=== PATIENT | male | born 1955 | race Caucasian/White ===

== ENCOUNTER → 2017-04-28 | Outpatient (CLI) | payer MEDICARE, OTHER ==
[2015-06-19 19:25] VITALS: BP 170/104
[~2017-04-28] MED LIST: ACET-704 PO; AMLO10TA4 PO; ASPI-630 PO; CARV12.5 PO; CITA20TA9 PO; CLOP75TA57 PO; CONTRAST GIVEN MC PRN; CYCL-331 PO; DULO30CA2 PO; EZET10TA18 PO; FENO145T32 PO; GABA-585 PO; INUL1TAB PO; IOHEXOL 240 MG/ML 50ML VIAL. ONE; IOHEXOL 300 MG/ML 75 ML VIAL. IV ONE; ISOS60TA PO; LOSA50TA2 PO; MULT1CAP15 PO; NITR0.4T SL; PANT40GR PO; PITA4TAB2 PO; RANO10002 PO; [UNRECOGNIZED DRUG - OTHER]
[2017-04-28 17:52] LABS: CREATININE 1.4 mg/dL (0.7-1.3); GFR 51.4; POTASSIUM 4.2 mmol/L (3.5-5.1)
[2017-04-28 18:21] LABS: BASO # 0.1 x10^3/uL (0.0-0.2); BASO % 1 % (0-3); EOS # 0.4 x10^3/uL (0.0-0.7); EOS % 4 % (0-3); HEMATOCRIT 42.9 % (39.0-53.0); HEMOGLOBIN 15.2 g/dL (13.0-17.5); LYMPH # 3.2 x10^3/uL (1.0-4.8); LYMPH % 32 % (24-48); MEAN CORPUSCULAR HEMOGLOBIN 31 pg (25-35); MEAN CORPUSCULAR HGB CONC 35 g/dL (31-37); MEAN CORPUSCULAR VOLUME 86 fL (79-100); MONO # 0.7 x10^3/uL (0.0-1.1); MONO % 7 % (0-9); NEUT # 5.9 x10^3uL (1.8-7.7); NEUT % 57 % (31-73); PLATELET COUNT 210 x10^3/uL (140-400); RED BLOOD COUNT 4.96 x10^6/uL (4.30-5.70); RED CELL DISTRIBUTION WIDTH 14.4 % (11.5-14.5); WHITE BLOOD COUNT 10.2 x10^3/uL (4.0-11.0)
--- NOTE | 2017-04-28 19:01 | RAD ---
CT ABD PELV W/ORAL IV CONTRAST dated 04/28/2017 6:18 PM Indication: Pain left-sidedSEVERE LEFT LOWER QUADRANT PAIN. ORAL AND 60MLS OMNI 300 IV CONTRAST
APPENDECTOMY
PRIOR CT ABD/EPVLIS SENT
left lower quadrant pain Comparison: 07/02/2014 Technique: Contiguous axial imaging the abdomen and pelvis performed after the administration of 60 cc Omnipaque 300. One or more of the following individualized dose reduction techniques were utilized for this examination: 1. Automated exposure control 2. Adjustment of the mA and/or kV according to patient size 3. Use of iterative reconstruction technique Findings: Limited images of lung bases are clear. Heart size upper limits of normal. No pleural or pericardial effusion. Coronary artery calcification. Liver is of diffuse low density, compatible with mild fatty infiltration. No apparent mass. Spleen, pancreas, adrenal glands, gallbladder and kidneys are unremarkable. No hydronephrosis. Partially opacified GI tract normal in caliber and contour. No focal bowel wall thickening. No inflammatory stranding in the mesentery. The appendix is not identified and reportedly surgically absent. Small umbilical hernia containing only fat. Images of pelvis a nondistended urinary bladder. Prostate gland mildly enlarged. No free fluid or lymphadenopathy. Bone windows show no acute findings. Mild multilevel spondylosis. IMPRESSION: 1. No acute abnormality of abdomen or pelvis. 2. Mild hepatic steatosis. Electronically signed by: Anders Mckeon MD (04/28/2017 6:57 PM) [facility]
[2017-04-28 21:55] LABS: BILIRUBIN,URINE NEG (NEG); CLARITY,URINE CLOUDY; COLOR,URINE AMBER; GLUCOSE,URINE NEG (NEG)
[2017-04-28 21:57] LABS: BACTERIA,URINE 0 /HPF (0-FEW); NITRITE,URINE NEG (NEG); SQUAMOUS EPITHELIAL CELL,UR FEW /LPF; UROBILINOGEN,URINE 1 mg/dL (0.2 mg/dL)
[2017-04-28 22:04] LABS: HYALINE CASTS, URINE MOD /HPF
== END | disposition home or self-care (01) ==
LOC: RAD 16:01
PROVIDERS: ATTEND Family Medicine
DX: K76.0 Fatty (change of) liver, not elsewhere classified (principal); K42.9 Umbilical hernia without obstruction or gangrene; I25.10 Atherosclerotic heart disease of native coronary artery without angina pectoris
CPT/HCPCS: 36415; 74177; 80048; 81001; 85025; 87086; Q9967

== ENCOUNTER 2019-12-12 17:16 | Emergency (ER) | payer MEDICARE, OTHER ==
[~2019-12-12] VITALS: Ht 180.3 cm; Wt 119.0 kg
[~2019-12-12 17:16] MED LIST changes: -CONTRAST GIVEN MC PRN; -EZET10TA18 PO; +EZET10TA20 PO; -IOHEXOL 240 MG/ML 50ML VIAL. ONE; -IOHEXOL 300 MG/ML 75 ML VIAL. IV ONE; -LOSA50TA2 PO; +LOSA50TA86 PO; -NITR0.4T SL; +NITR0.4T24 SL
[2019-12-12 17:30] VITALS: BP 154/86
[2019-12-12] MEDS ORDERED: MORPHINE SULFATE 4 MG/ML DISP.SYRIN. IV ONE (17:30)
--- NOTE | 2019-12-12 17:34 | PHYS DOC ---
Past History Past Medical History: CAD, Diabetes, Hypertension, Stroke (FARRUKH HARDY MD) Past Surgical History: Appendectomy, Other (FARRUKH HARDY MD) Smoking: Non-smoker Alcohol Use: None Drug Use: None (FARRUKH HARDY MD) General Adult EDM: Chief Complaint: WRIST PAIN HPI: HPI: Patient is a 64-year-old male who presents to the emergency department for evaluation of a right upper extremity injury. He states he was cutting tree limbs, when a cut tree limb recoiled, and somehow struck his right upper extremity, which was pinned against the ladder. He did sustain some abrasions on the dorsal aspect of his right hand, which did not require repair. He states his last tetanus was about 2 years ago.. He complains of pain in his wrist, and into his forearm. He denies any injury to his digits, or from his mid or proximal forearm. He denies any numbness or weakness. Movement of his upper extremity and his digits worsen his pain. There are no alleviating factors to his symptoms. He denies any other complaints or injuries. The patient did not have any fall or other trauma. (FARRUKH HARDY MD) Review of Systems: Review of Systems: Constitutional: Denies fever or chills Eyes: Denies change in visual acuity HENT: Denies nasal congestion or sore throat Respiratory: Denies cough or shortness of breath Cardiovascular: Denies chest pain or edema GI: Denies abdominal pain, nausea, vomiting, bloody stools or diarrhea : Denies dysuria Musculoskeletal: Denies back pain or joint pain, other than as noted in the HPI Integument: Denies rash Neurologic: Denies headache, focal weakness or sensory changes (FARRUKH HARDY MD) Heart Score: Risk Factors: Risk Factors: DM, Current or recent (<one month) smoker, HTN, HLP, family history of CAD, obesity. Risk Scores: Score 0 - 3: 2.5% MACE over next 6 weeks - Discharge Home Score 4 - 6: 20.3% MACE over next 6 weeks - Admit for Clinical Observation Score 7 - 10: 72.7% MACE over next 6 weeks - Early Invasive Strategies (FARRUKH HARDY MD) Allergies: Allergies: Allergies Coded Allergies Type Severity Reaction Last Updated Verified atorvastatin calcium Allergy Intermediate muscle cramps 07/02/14 Yes rosuvastatin calcium Allergy Intermediate makes legs feel like they are on fire. 07/02/14 Yes (FARRUKH HARDY MD) Physical Exam: PE: PHYSICAL EXAM: CONSTITUTIONAL: Well developed, well nourished HEAD: normocephalic, atraumatic EENT: PERRL, EOMI. Conjunctivae normal color, sclerae non-icteric; moist mucous membranes. NECK: Supple, non-tender; no meningismus. There is full, painless range of motion of the cervical spine, without any focal bony midline tenderness to palpation. LUNGS: Lungs CTA, breathing even and unlabored. Normal air movement. HEART: Regular rate and rhythm, no murmur CHEST: No deformity; non-tender ABDOMEN: The abdomen is soft, and non-tender, no masses or bruits. EXTREM: There is a deformity with soft tissue swelling to the dorsal aspect of the right wrist. There are superficial abrasions on the dorsal aspect of the right hand, with no laceration. There is tenderness to palpation in the area of the right wrist, extending proximally towards the mid forearm, the proximal forearm and right elbow are nontender, the remainder of the right upper extremity is atraumatic with normal ROM. Distal sensation, motor function, capillary refill in all digits is normal in the right upper extremity. The remainder the extremities are atraumatic, with normal range of motion, no deformity, no calf tenderness. Normal pulses palpable in all extremities. There is no pedal edema. SKIN: No rash; no diaphoresis NEURO: Alert; normal speech and cognition; CN's grossly intact; strength grossly intact without focal deficit. BACK: No CVA TTP. There is no bony tenderness to palpation of the thoracic or lumbar spine. (FARRUKH HARDY MD) EKG: EKG: [] (FARRUKH HARDY MD) Radiology/Procedures: Radiology/Procedures: [] (FARRUKH HARDY MD) Radiology/Procedures: [address] [address] IMAGING REPORT Signed PATIENT: MANUELA DUKES: [id number] : 1955 LOCATION: ER AGE: 64 SEX: M EXAM STATUS: REG ER ORD. PHYSICIAN: FARRUKH HARDY MD REASON: fall, pain PROCEDURE: FOREARM RIGHT Exam: Right wrist 3 views. Right forearm 2 views. Right hand 3 views INDICATION: Fall, pain TECHNIQUE: Frontal, lateral and oblique views of the right wrist and right hand. Frontal and lateral views the right forearm Comparisons: None FINDINGS: Wrist: Impacted fracture of the distal right radial metaphysis. Fracture to the base of the ulnar styloid. No other fractures are identified. Bony soft tissue swelling is noted. Bone mineralization is normal. Hand: Bone mineralization is normal. No acute or healed fractures. Soft tissues are unremarkable. Joint spaces are well-maintained. Forearm: Redemonstration of fractures described above. No other fractures seen. Soft tissue swelling at the wrist. Joint spaces are well-maintained. IMPRESSION: 1. Impacted angulated fracture of the distal right radial metaphysis. 2. Fracture to the base of the ulnar styloid. 3. No other fracture identified at the right hand. Electronically signed by: Lori Lyman MD (12/12/2019 6:06 PM) [id number] DICTATED AND SIGNED BY: LORI LYMAN MD DATE: 12/12/191805 CC: NAHID SHAH MD; FARRUKH HARDY MD; NELA PEREZ DO ~ [place] [address] IMAGING REPORT Signed PATIENT: MANUELA DUKESOUNT: [id number] : 1955 LOCATION: ER AGE: 64 SEX: M EXAM STATUS: REG ER ORD. PHYSICIAN: FARRUKH HARDY MD REASON: fall, pain PROCEDURE: HAND RIGHT 3V Exam: Right wrist 3 views. Right forearm 2 views. Right hand 3 views INDICATION: Fall, pain TECHNIQUE: Frontal, lateral and oblique views of the right wrist and right hand. Frontal and lateral views the right forearm Comparisons: None FINDINGS: Wrist: Impacted fracture of the distal right radial metaphysis. Fracture to the base of the ulnar styloid. No other fractures are identified. Bony soft tissue swelling is noted. Bone mineralization is normal. Hand: Bone mineralization is normal. No acute or healed fractures. Soft tissues are unremarkable. Joint spaces are well-maintained. Forearm: Redemonstration of fractures described above. No other fractures seen. Soft tissue swelling at the wrist. Joint spaces are well-maintained. IMPRESSION: 1. Impacted angulated fracture of the distal right radial metaphysis. 2. Fracture to the base of the ulnar styloid. 3. No other fracture identified at the right hand. Electronically signed by: Lori Lyman MD (12/12/2019 6:06 PM) [id number] DICTATED AND SIGNED BY: LORI LYMAN MD DATE: 12/12/191805 CC: NAHID SHAH MD; FARRUKH HARDY MD; NELA PEREZ DO ~ [place] [address] IMAGING REPORT Signed PATIENT: MANUELA DUKESOUNT: [id number] : 1955 LOCATION: ER AGE: 64 SEX: M EXAM STATUS: REG ER ORD. PHYSICIAN: FARRUKH HARDY MD REASON: fall, pain PROCEDURE: WRIST 3V RIGHT Exam: Right wrist 3 views. Right forearm 2 views. Right hand 3 views INDICATION: Fall, pain TECHNIQUE: Frontal, lateral and oblique views of the right wrist and right hand. Frontal and lateral views the right forearm Comparisons: None FINDINGS: Wrist: Impacted fracture of the distal right radial metaphysis. Fracture to the base of the ulnar styloid. No other fractures are identified. Bony soft tissue swelling is noted. Bone mineralization is normal. Hand: Bone mineralization is normal. No acute or healed fractures. Soft tissues are unremarkable. Joint spaces are well-maintained. Forearm: Redemonstration of fractures described above. No other fractures seen. Soft tissue swelling at the wrist. Joint spaces are well-maintained. IMPRESSION: 1. Impacted angulated fracture of the distal right radial metaphysis. 2. Fracture to the base of the ulnar styloid. 3. No other fracture identified at the right hand. Electronically signed by: Lori Lyman MD (12/12/2019 6:06 PM) [id number] DICTATED AND SIGNED BY: LORI LYMAN MD DATE: 12/12/191805 CC: NAHID SHAH MD; FARRUKH HARDY MD; NELA PEREZ DO ~ (NELA PEREZ DO) Course & Med Decision Making: Course & Med Decision Making Pertinent Labs and Imaging studies reviewed. (See chart for details) [] 6:00 PM: Patient care was turned over to Dr. Perez at shift change, pending imaging and final disposition. Report given. (FARRUKH HARDY MD) Course & Med Decision Making 1800 Care of pt assumed by me at shift change. Awaiting completion of xrays 1850 Case was discussed with Dr. Chance telephone interviewer for Orthopedic Surgery. He reviewed the x-rays remotely and requested that I place patient in a finger splint to help with improved alignment. He wishes to see the patient in the office in approximately 4 days. The swelling needs to go down before patient can have complete reduction of the wrist and hardware placed. Patient was given both fentanyl and Ativan for pain control and muscle relaxation. Patient was neurovascularly intact and had full normal sensation to his wrist and hand. This was a closed injury. 2030 splint placed by me sling given. Detailed follow-up instructions given. We will also sent home with a Tylenol 3 starter pack. Prescription for [place] given as well. Patient is to rest, ice and elevate the injured right wrist. No use of the right wrist until cleared by orthopedic surgeon (NELA PEREZ DO) Dragon Disclaimer: Dragon Disclaimer: This electronic medical record was generated, in whole or in part, using a voice recognition dictation system. (FARRUKH HARDY MD) Departure Departure: Impression: Primary Impression: Distal radius fracture, right Qualified Codes: S52.551A - Other extraarticular fracture of lower end of right radius, initial encounter for closed fracture Additional Impression: Distal end of ulna fracture, closed Disposition: HOME, SELF-CARE Condition: STABLE Referrals: NAHID SHAH MD (PCP) GLORIA CHANCE II, MD Patient Instructions: Arm Sling Use, [id number], Wrist Fracture Additional Instructions: Rest, ice and elevate the injured right wrist, call and see the orthopedic surgeon listed tomorrow to set up an appointment for early next week. You will need surgery on this wrist. Should you have any complications including numbne ss tingling, loss of sensation etc. call your orthopedic surgeon right away. Return as needed. Scripts Hydrocodone Bit/Acetaminophen (NORCO 5-325 TABLET) 1 Each Tablet 1 TAB PO PRN Q6HRS PRN for PAIN, #20 TAB 0 Refills Prov: NELA PEREZ DO 12/12/19 Splinting Splinting : Location: right forearm Hand-Made Type: orthoglass Splint: sugar-tong Pre-Proc Neuro Vasc Exam: normal Post-Proc Neuro Vasc Exam: normal (NELA PEREZ DO) Additional Procedures Progress Reduction distal right radius, as instructed by Dr. Chance. Patient was placed in a finger traction splint for about 1 hour. There was improvement of alignment of the affected fracture. I then placed direct pressure on the distal portion of the fracture and there was some minimal clinical improvement. However he was completely neurovascularly intact before and after the attempt. Pain control was a total of 125 mcg of fentanyl as well as Ativan 2 mg. Conscious sedation was not used. Patient tolerated the procedure well and I personally placed the sugar tong splint. We did not have any cotton roll so Curlex was used to cushion the fracture area. Patient tolerated procedure well (NELA PEREZ DO) FARRUKH HARDY MD Dec 12, 2019 17:34 NELA PEREZ DO Dec 12, 2019 18:31
[2019-12-12] MEDS ORDERED: ONDANSETRON PF 4 MG/2 ML VIAL. ONE (17:36)
[2019-12-12] MEDS ORDERED: LIDOCAINE 1% Multi-Dose 20 ML VIAL. ONE (17:43)
[2019-12-12] MEDS ORDERED: ONDANSETRON PF 4 MG/2 ML VIAL. IVP ONE ×2 (17:45)
--- NOTE | 2019-12-12 18:09 | RAD ---
Exam: Right wrist 3 views. Right forearm 2 views. Right hand 3 views INDICATION: Fall, pain TECHNIQUE: Frontal, lateral and oblique views of the right wrist and right hand. Frontal and lateral views the right forearm Comparisons: None FINDINGS: Wrist: Impacted fracture of the distal right radial metaphysis. Fracture to the base of the ulnar styloid. No other fractures are identified. Bony soft tissue swelling is noted. Bone mineralization is normal. Hand: Bone mineralization is normal. No acute or healed fractures. Soft tissues are unremarkable. Joint spaces are well-maintained. Forearm: Redemonstration of fractures described above. No other fractures seen. Soft tissue swelling at the wrist. Joint spaces are well-maintained. IMPRESSION: 1. Impacted angulated fracture of the distal right radial metaphysis. 2. Fracture to the base of the ulnar styloid. 3. No other fracture identified at the right hand. Electronically signed by: Lori Wynn MD (12/12/2019 6:06 PM) [id number]
[2019-12-12] MEDS ORDERED: ACETAMINOPHEN/CODEINE 300/30MG 4TABLET STARTPACK. PO ONE (20:30)
[2019-12-12] MEDS ORDERED: HYDR-3165 PO (20:35)
== END 2019-12-12 20:45 | disposition home or self-care (01) ==
LOC: ER 17:16
DX: S52.551A Other extraarticular fracture of lower end of right radius, initial encounter for closed fracture (principal); S52.611A Displaced fracture of right ulna styloid process, initial encounter for closed fracture; I25.10 Atherosclerotic heart disease of native coronary artery without angina pectoris; E11.9 Type 2 diabetes mellitus without complications; I10 Essential (primary) hypertension; Z86.73 Personal history of transient ischemic attack (TIA), and cerebral infarction without residual deficits; Z88.8 Allergy status to other drugs, medicaments and biological substances; W20.8XXA Other cause of strike by thrown, projected or falling object, initial encounter; Y93.89 Activity, other specified; Y92.89 Other specified places as the place of occurrence of the external cause; Y99.8 Other external cause status
CPT/HCPCS: 25605; 73090; 73110; 73130; 96374; 96375; 99284; J2060; J2270; J2405; J3010

== ENCOUNTER 2020-10-30 09:48 | Observation (INO) | payer MEDICARE, OTHER ==
[~2020-10-30] VITALS: Ht 180.3 cm; Wt 114.5 kg
[2020-10-30] VITALS (8 sets, daily range): BP systolic 96–128; BP diastolic 46–64
[~2020-10-30 09:48] MED LIST changes: +HYDR-3165 PO
[2020-10-30] MEDS ORDERED: ONDANSETRON PF 4 MG/2 ML VIAL. ONE (10:06)
--- NOTE | 2020-10-30 10:06 | PHYS DOC ---
Past History Past Medical History: CAD, Diabetes Additional Past Medical Histor: Pacemaker, 6 cardiac stents Past Surgical History: Tonsillectomy Additional Past Surgical Histo: foot surgery, pacemaker Smoking: Non-smoker Alcohol Use: None Drug Use: None Adult General Chief Complaint Chief Complaint: FLU SYMPTOM HPI HPI Patient is a 65-year-old male presenting for weakness and fatigue. Reports waking up this morning with generalized weakness, fatigue and joint pain. Denies any sick contact or exposures. Admits he had transient episode of substernal chest pain with associated shortness of breath but this self resolved in less than 5 minutes. Has had no fever, no changes in medication or other concerning ingestions and/or exposures. Nonetheless, ongoing severe weakness and fatigue prompt him to come into our ER for evaluation Review of Systems Review of Systems Fourteen body systems of review of systems have been reviewed. See HPI for pertinent positives and negative responses, other longo all other systems are negative, non-pertinent or non-contributory Allergies Allergies Allergies Coded Allergies Type Severity Reaction Last Updated Verified atorvastatin calcium Allergy Intermediate muscle cramps 07/02/14 Yes rosuvastatin calcium Allergy Intermediate makes legs feel like they are on fire. 07/02/14 Yes Physical Exam Physical Exam Constitutional: Well developed, well nourished, no acute distress, appears ill HENT: Normocephalic, atraumatic, bilateral external ears normal, oropharynx dry, no oral exudates, nose normal. Eyes: PERRLA, EOMI, conjunctiva normal, no discharge. Neck: Normal range of motion, no tenderness, supple, no stridor. Cardiovascular: Heart rate regular, sinus rhythm, no murmurs rubs or gallops Lungs & Thorax: Bilateral breath sounds clear to auscultation Abdomen: Bowel sounds normal, soft, no tenderness, no masses, no pulsatile masses. Nonsurgical abdomen, no peritoneal signs Skin: Warm, dry, no erythema, no rash. Back: No tenderness, no CVA tenderness. Extremities: No tenderness, no cyanosis, no clubbing, ROM intact, no edema. Neurologic: Alert and oriented X 3, grossly normal motor & sensory function, no focal deficits noted. Psychologic: Affect normal, judgement normal, mood normal. Current Patient Data Vital Signs Vital Signs Date Time Temp Pulse Resp B/P (MAP) Pulse Ox O2 Delivery O2 Flow Rate FiO2 10/31/20 09:13 16 94 Room Air 10/31/20 08:04 16 94 10/31/20 08:00 Room Air 10/31/20 06:36 98.7 86 18 136/75 (95) 96 Room Air 10/30/20 23:48 66 18 118/62 (80) 97 Room Air 10/30/20 23:43 95 Room Air 10/30/20 22:50 70 17 120/59 (79) 95 Room Air 10/30/20 22:43 95 Room Air 10/30/20 21:54 96.8 67 16 96/56 (69) 95 Room Air 10/30/20 20:49 76 20 128/64 (85) 95 Room Air 10/30/20 20:00 65 16 109/46 (67) 90 Room Air 10/30/20 20:00 Room Air 10/30/20 19:32 97.6 10/30/20 19:00 66 17 110/62 (78) 95 Room Air 10/30/20 18:00 98.1 75 19 113/61 (78) 95 Room Air 10/30/20 13:05 101.1 84 22 116/59 (78) 99 Room Air 10/30/20 13:05 Room Air 10/30/20 10:32 90 26 135/73 (93) 97 Nasal Cannula 3.0 10/30/20 09:50 98.2 88 16 147/62 (90) 95 Room Air Lab Results Laboratory Tests Test 10/30/20 10:23 10/30/20 10:37 10/30/20 12:50 10/30/20 13:30 White Blood Count 10.7 x10^3/uL Red Blood Count 5.68 x10^6/uL Hemoglobin 17.1 g/dL Hematocrit 50.9 % Mean Corpuscular Volume 90 fL Mean Corpuscular Hemoglobin 30 pg Mean Corpuscular Hemoglobin Concent 34 g/dL Red Cell Distribution Width 14.0 % Platelet Count 150 x10^3/uL Neutrophils (%) (Auto) 96 % Lymphocytes (%) (Auto) 3 % Monocytes (%) (Auto) 1 % Eosinophils (%) (Auto) 0 % Basophils (%) (Auto) 0 % Neutrophils # (Auto) 10.2 x10^3uL Lymphocytes # (Auto) 0.4 x10^3/uL Monocytes # (Auto) 0.1 x10^3/uL Eosinophils # (Auto) 0.0 x10^3/uL Basophils # (Auto) 0.0 x10^3/uL Sodium Level 142 mmol/L Potassium Level 3.7 mmol/L Chloride Level 107 mmol/L Carbon Dioxide Level 23 mmol/L Anion Gap 12 Blood Urea Nitrogen 24 mg/dL Creatinine 1.2 mg/dL Estimated GFR (Cockcroft-Gault) 60.6 BUN/Creatinine Ratio 20 Glucose Level 174 mg/dL Calcium Level 8.9 mg/dL Total Bilirubin 1.7 mg/dL Aspartate Amino Transf (AST/SGOT) 25 U/L Alanine Aminotransferase (ALT/SGPT) 32 U/L Alkaline Phosphatase 108 U/L Creatine Kinase 45 U/L Troponin I Quantitative < 0.017 ng/mL < 0.017 ng/mL KI-Egd-W-Type Natriuretic Peptide 167 pg/mL Total Protein 6.6 g/dL Albumin 3.7 g/dL Albumin/Globulin Ratio 1.3 Influenza Type A (Rapid) Negative Influenza Type B (Rapid) Negative Urine Collection Type Unknown Urine Color [place] Urine Clarity Clear Urine pH 5.0 Urine Specific [place] 1.010 Urine Protein Neg Urine Glucose (UA) >=1000 mg/dL Urine Ketones (Stick) 15 mg/dL Urine Blood Trace Urine Nitrite Neg Urine Bilirubin Neg Urine Urobilinogen Dipstick 0.2 mg/dL Urine Leukocyte Esterase Neg Urine RBC 0 /HPF Urine WBC 0 /HPF Urine Squamous Epithelial Cells None /LPF Urine Bacteria 0 /HPF Test 10/30/20 17:10 10/30/20 21:45 Troponin I Quantitative < 0.017 ng/mL Glucose (Fingerstick) 190 mg/dL Current Medications Medications (Trade) Dose Ordered Sig/Suresh Route PRN Reason Start Time Stop Time Status Last Admin Dose Admin Ondansetron HCl (Zofran) 4 mg STK-MED ONCE .ROUTE 10/30/20 10:06 10/30/20 10:07 DC Ondansetron HCl (Zofran) 4 mg 1X ONCE IVP 10/30/20 10:15 10/30/20 10:16 DC 10/30/20 10:30 Sodium Chloride 500 ml @ 0 mls/hr 1X ONCE IV 10/30/20 10:15 10/30/20 10:16 DC 10/30/20 10:30 Aspirin (Aspirin Chewable) 324 mg 1X ONCE PO 10/30/20 10:45 10/30/20 10:46 DC 10/30/20 10:36 EKG EKG EKG ordered and interpreted by myself at 1024 hrs. as sinus rhythm at 89 bpm, unremarkable intervals, left axis deviation, T wave inversions noted in lead aVR without any other acute ischemic findings, no STEMI Repeat EKG ordered and interpreted by myself at 1123 hrs. as sinus rhythm at 91 bpm, left axis deviation, persistent T wave inversions noted in lead aVR without any other ischemic findings, no STEMI Radiology/Procedures Radiology/Procedures PROCEDURE: PORTABLE CHEST 1V EXAM: XR CHEST 1V INDICATION: Reason: FATIGUE, CHEST PAIN / Spl. Instructions: / History: . TECHNIQUE: Single view COMPARISON: None FINDINGS: Left chest dual-chamber pacemaker is present. The heart size is normal. The great vessels appear unremarkable. There is no hilar or mediastinal mass. Lungs are hypoventilatory. No acute infiltrates noted. There is no pleural effusion or pneumothorax. There are no significant osseous abnormalities. IMPRESSION: Hypoventilatory chest. Left chest pacemaker. No acute cardiopulmonary process. Electronically signed by: Santiago De La Fuente MD (10/30/2020 11:23 AM) [id number] Heart Score C/O Chest Pain: Yes HEART Score for Chest Pain: HEART Score for Chest Pain Response (Comments) Value History Slighlty/Non-Suspicious 0 ECG Nonspecific Repolarizatio 1 Age > 65 2 Risk Factors >3 Risk Factors or Hx CAD 2 Troponin < Normal Limit 0 Total 5 Risk Factors: Risk Factors: DM, Current or recent (<one month) smoker, HTN, HLP, family history of CAD, obesity. Risk Scores: Risk Factors: DM, Current or recent (<one month) smoker, HTN, HLP, family history of CAD, obesity. Course & Med Decision Making Course & Med Decision Making Hemodynamically stable patient with history exam concerning for transient chest pain in a high risk individual with prior CABG and URI-like symptoms. History exam grossly nonconcerning Comprehensive ER evaluation performed and again, nonconcerning. Patient did not respond to ER intervention that included IV fluid resuscitation. Patient remains weak and fatigued, he does not feel comfortable going home, he is a high fall risk I discussed case with patient's PCP who also serves as his hospitalist, discussed my concern for potential Covid symptoms and need for observation for chest pain rule out, he agreed need for admission and accepted patient under his care Patient and were updated on proposed plan of care that involved admission to hospital for continued supportive care and cardiac observation, they were amenable to plan as stated. All questions and concerns addressed prior to ER transportation to [facility] for admission [place] Disclaimer Dragon Disclaimer This electronic medical record was generated, in whole or in part, using a voice recognition dictation system. Departure Departure: Impression: Primary Impression: Person under investigation for COVID-19 Additional Impression: Chest pain, rule out acute myocardial infarction Disposition: ADMITTED INPT THIS HOSP Admitting Physician: Nahid Simental Condition: STABLE Referrals: NAHID SIMENTAL MD (PCP) Problem Qualifiers LAKESHAFREDERICK Oct 30, 2020 10:06
[2020-10-30] MEDS ORDERED: ONDANSETRON PF 4 MG/2 ML VIAL. IVP ONE (10:15)
[2020-10-30] MEDS ORDERED: IV NORMAL SALINE 500ML 500 ML IV ONE (10:15)
[2020-10-30 10:45] LABS: BASO % 0 % (0-3); EOS % 0 % (0-3); HEMATOCRIT 50.9 % (39.0-53.0); HEMOGLOBIN 17.1 g/dL (13.0-17.5); LYMPH # 0.4 x10^3/uL (1.0-4.8); LYMPH % 3 % (24-48); MEAN CORPUSCULAR HEMOGLOBIN 30 pg (25-35); MEAN CORPUSCULAR HGB CONC 34 g/dL (31-37); MEAN CORPUSCULAR VOLUME 90 fL (79-100); MONO # 0.1 x10^3/uL (0.0-1.1); MONO % 1 % (0-9); NEUT # 10.2 x10^3uL (1.8-7.7); NEUT % 96 % (31-73); PLATELET COUNT 150 x10^3/uL (140-400); RED BLOOD COUNT 5.68 x10^6/uL (4.30-5.70); WHITE BLOOD COUNT 10.7 x10^3/uL (4.0-11.0)
[2020-10-30] MEDS ORDERED: ASPIRIN CHEWABLE 81 MG TABLET. PO ONE (10:45)
[2020-10-30 10:50] LABS: CALCIUM 8.9 mg/dL (8.5-10.1); CREATININE 1.2 mg/dL (0.7-1.3); GFR 60.6; POTASSIUM 3.7 mmol/L (3.5-5.1)
[2020-10-30 11:02] LABS: ALBUMIN 3.7 g/dL (3.4-5.0); ALBUMIN/GLOBULIN RATIO 1.3 (1.0-1.7); TOTAL BILIRUBIN 1.7 mg/dL (0.2-1.0); TOTAL PROTEIN 6.6 g/dL (6.4-8.2)
[2020-10-30 11:24] LABS: INFLUENZA A PATIENT NEGATIVE (NEGATIVE); INFLUENZA B PATIENT NEGATIVE (NEGATIVE)
--- NOTE | 2020-10-30 11:25 | RAD ---
EXAM: XR CHEST 1V INDICATION: Reason: FATIGUE, CHEST PAIN / Spl. Instructions: / History: . TECHNIQUE: Single view COMPARISON: None FINDINGS: Left chest dual-chamber pacemaker is present. The heart size is normal. The great vessels appear unremarkable. There is no hilar or mediastinal mass. Lungs are hypoventilatory. No acute infiltrates noted. There is no pleural effusion or pneumothorax. There are no significant osseous abnormalities. IMPRESSION: Hypoventilatory chest. Left chest pacemaker. No acute cardiopulmonary process. Electronically signed by: Santiago De La Fuente MD (10/30/2020 11:23 AM) [id number]
[2020-10-30 13:28] LABS: BACTERIA,URINE 0 /HPF (0-FEW); BILIRUBIN,URINE NEG (NEG); CLARITY,URINE CLEAR; COLOR,URINE AMBER; GLUCOSE,URINE >=1000 mg/dL (NEG); NITRITE,URINE NEG (NEG); RBC,URINE 0 /HPF (0-2); UROBILINOGEN,URINE 0.2 mg/dL (0.2 mg/dL); WBC,URINE 0 /HPF (0-4)
[2020-10-30] MEDS ORDERED: ACETAMINOPHEN 500 MG TABLET PO PRN ×2 (15:00→18:45)
[2020-10-30] MEDS ORDERED: ACETAMINOPHEN 325 MG TABLET PO PRN (15:00)
--- NOTE | 2020-10-30 15:00 | EKG ---
[facility] ED [facility] [address] [place] [id number] Test Date: 2020-10-30 Test Time: 11:19:13 Pat Name: MANUELA DUKES Department: Room: Gender: M [employer]: : 1955 Requested By: FREDERICK CROWDER Order Number: [id number] Reading MD: Measurements Intervals [facility] Rate: 91 P: 31 OK: 162 QRS: -46 QRSD: 94 T: 29 QT: 334 QTc: 412 Interpretive Statements SINUS RHYTHM ABNORMAL LEFT AXIS DEVIATION R-S TRANSITION ZONE IN V LEADS DISPLACED TO THE LEFT LEFT ANTERIOR FASCICULAR BLOCK INCOMPLETE RIGHT BUNDLE BRANCH BLOCK ABNORMAL ECG RI6.02 No previous ECG available for comparison
--- NOTE | 2020-10-30 15:00 | EKG ---
[facility] ED [facility] [address] [place] [id number] Test Date: 2020-10-30 Test Time: 10:18:39 Pat Name: MANUELA DUKES Department: Room: Gender: M [employer]visor [employer]: : 1955 Requested By: FREDERICK CROWDER Order Number: [id number] Reading MD: Measurements Intervals [place] Rate: 89 P: 34 CO: 160 QRS: -50 QRSD: 96 T: 28 QT: 334 QTc: 407 Interpretive Statements SINUS RHYTHM ABNORMAL LEFT AXIS DEVIATION R-S TRANSITION ZONE IN V LEADS DISPLACED TO THE LEFT LEFT ANTERIOR FASCICULAR BLOCK ABNORMAL ECG RI6.02 No previous ECG available for comparison
[2020-10-30] MEDS ORDERED: ZOLPIDEM 5 MG TABLET. PO PRN (18:45)
[2020-10-30] MEDS ORDERED: HYDROcodone/APAP 5/325MG 1 TAB TABLET PO PRN (18:45)
[2020-10-30] MEDS ORDERED: NITROGLYCERIN SUBLINGUAL 0.4 MG BOTTLE OF 25. SL PRN (18:45)
[2020-10-30] MEDS: IPRATRPIUM/ALBUTEROL 0.5/2.5MG 3 ML NEBU. INH SCH (20:00)
[2020-10-30] MEDS ORDERED: GABAPENTIN 100 MG CAPSULE. PO SCH (21:00)
[2020-10-30] MEDS ORDERED: NON FORMULARY ITEM (Ranolazine (Ranexa) 1,000 MG) PO SCH (21:00)
[2020-10-30] MEDS ORDERED: MV-M1TAB7 PO (21:48)
[2020-10-30] MEDS ORDERED: EMPA25TA PO (21:48)
[2020-10-30] MEDS ORDERED: MELA10CA PO (21:48)
[2020-10-30] MEDS ORDERED: VITA-8 PO (21:48)
[2020-10-30] MEDS ORDERED: TAMS0.4C97 PO (21:48)
[2020-10-30] MEDS ORDERED: VITA1CAP7 PO (21:48)
[2020-10-30] MEDS ORDERED: OMEG1CAP68 PO (21:48)
[2020-10-30] MEDS ORDERED: ZINC50TA39 PO (21:48)
[2020-10-30] MEDS ORDERED: METF500T16 PO (21:48)
[2020-10-30] MEDS ORDERED: TAMSULOSIN 0.4 MG CAP.ER.24H. PO ONE (22:30)
[2020-10-30] MEDS: HYDROcodone/APAP 5/325MG 1 TAB TABLET PO PRN (22:43)
[2020-10-30] MEDS: AZITHROMYCIN 250 MG TABLET. PO SCH (22:43)
[2020-10-31] MEDS ORDERED: metFORMIN 500 MG TABLET PO SCH ×3 (05:15→17:00)
[2020-10-31] MEDS ORDERED: NITROGLYCERIN SUBLINGUAL 0.4 MG BOTTLE OF 25. SL PRN (05:15)
[2020-10-31] MEDS: IPRATRPIUM/ALBUTEROL 0.5/2.5MG 3 ML NEBU. INH SCH ×4 (06:28→20:00)
[2020-10-31 06:36] VITALS: BP 136/75
[2020-10-31] MEDS ORDERED: CARVEDILOL 12.5 MG TABLET PO SCH (07:00)
[2020-10-31] MEDS: AZITHROMYCIN 250 MG TABLET. PO SCH (08:03)
[2020-10-31] MEDS: HYDROcodone/APAP 5/325MG 1 TAB TABLET PO PRN ×2 (08:04→16:08)
[2020-10-31] MEDS ORDERED: LOSARTAN 50 MG TABLET. PO SCH ×2 (09:00→17:00)
[2020-10-31] MEDS ORDERED: PITAVASTATIN CALCIUM 4 MG PO SCH (09:00)
[2020-10-31] MEDS ORDERED: ISOSORBIDE MONONITRATE 60 MG PO SCH (09:00)
[2020-10-31] MEDS ORDERED: CALCIUM CARBONATE PO SCH (09:00)
[2020-10-31] MEDS ORDERED: NON FORMULARY ITEM (Pantoprazole Sodium (Protonix) 40 MG) PO SCH (09:00)
[2020-10-31] MEDS ORDERED: SORBITOL PO SCH (09:00)
[2020-10-31] MEDS ORDERED: CHOLECALCIFEROL PO SCH (09:00)
[2020-10-31] MEDS ORDERED: NON FORMULARY ITEM (Multivitamin (Multivitamins) 1 EACH) PO SCH (09:00)
[2020-10-31] MEDS ORDERED: FLU VACC QS 2020-21(6MOS+)/PF 0.5 ML SYRINGE. VAX IM ONE (09:00)
[2020-10-31] MEDS ORDERED: INULIN PO SCH (09:00)
[2020-10-31] MEDS ORDERED: [UNRECOGNIZED DRUG - OTHER] PO SCH (09:00)
[2020-10-31] MEDS ORDERED: ASPIRIN CHEWABLE 81 MG TABLET. PO SCH (09:00)
[2020-10-31] MEDS ORDERED: amLODIPine BESYLATE 10 MG TABLET PO SCH (09:00)
[2020-10-31] MEDS ORDERED: CLOPIDOGREL BISULFATE 75 MG TABLET PO SCH ×2 (09:00→17:00)
[2020-10-31] MEDS ORDERED: CYCLOBENZAPRINE 10 MG TABLET. PO SCH (09:00)
[2020-10-31] MEDS ORDERED: FENOFIBRATE NANOCRYSTALLIZED 145 MG TABLET PO SCH ×2 (09:00→17:00)
[2020-10-31] MEDS ORDERED: EZETIMIBE 10 MG TABLET PO SCH ×2 (09:00→17:00)
[2020-10-31] MEDS ORDERED: FUROSEMIDE 20 MG/2 ML VIAL IVP ONE (09:45)
--- NOTE | 2020-10-31 10:16 | HP ---
ADMIT DATE: 10/30/2020 HISTORY OF PRESENT ILLNESS: A 65-year-old male came in through the Emergency Room with increased weakness and fatigue. The patient notes he has severe joint pain, unable to mobilize very well. He also has substernal chest pain associated with shortness of breath, but also resolved in about 5 minutes. He has had a long history of coronary artery disease. The patient was brought in because of his increased shortness of breath, chest pain and has a history of multiple cardiac events as well. His arthralgias had had a possible underlying factor of some form of infectious process. PAST MEDICAL HISTORY: Extensive for heart attacks, angina, CHF, 5-6 coronary stents, pacemaker, anticoagulant therapy, Plavix and aspirin, hypercholesterolemia, sleep apnea, cholecystectomy, appendectomy, obesity, nausea, vomiting, genitourinary disorders, prostate problems, arthritis, endocrine disorders, diabetes, tobacco use, smoking problems, influenza, pneumococcal up-to-date. FAMILY HISTORY: Positive for diabetes, cancer, CAD, COPD. ALLERGIES: TO LIPITOR, LOVASTATIN. SOCIAL HISTORY: The patient has about 18-[id number]-dkef history of smoking. Occasional alcohol use. Denies hard drug use. Full code. REVIEW OF SYSTEMS: The patient has generalized weakness. The patient has multiple joint problems of swelling and stiffness in all his joints. The patient otherwise difficulty breathing, especially when lying down, some orthopnea. Denies chest pain at the present time, did have some problems with diarrhea, but that seems to have passed. Neurologically, he is basically stable, although most weaker than he normally is. PHYSICAL EXAMINATION: GENERAL: This is a pleasant white male. VITAL SIGNS: Blood pressure 136/75, respiratory rate 18, pulse 86, afebrile. HEENT: The patient is an ill-appearing male, somewhat pale appearing. Skin somewhat clammy. Head was atraumatic, normocephalic. Eyes: PERRLA without jaundice. The mouth and throat: Poor dentition. NECK: Supple, without JVD, carotid bruits or thyromegaly. LUNGS: Did show some decreased breath sounds in the bases. Some crackles noted. CARDIOVASCULAR: Regular sinus rhythm, S1, S2, without murmur, rub, thrill, or extra heart sounds. ABDOMEN: Soft, diffuse tenderness throughout. EXTREMITIES: Without clubbing, cyanosis. Trace edema, some swelling to the joints and increased stiffness noted to the joints themselves. IMPRESSION: Acute on top of chronic diastolic heart failure, polyarthralgia, hyperglycemia, tobacco abuse. PLAN: The patient will be placed on some mild diuretics as well as IV Solu-Medrol. Also, oral antibiotics and make further evaluation on him as indicated. NAHID SHAH MD DR: RAGHAV/juvenal JOB#: [id number] / [id number]
[2020-10-31] MEDS: methylPREDNISolone SOD SUCC PF 40 MG/ML VIAL. IV SCH ×2 (10:28→20:33)
[2020-10-31 11:00] VITALS: BP 104/62
[2020-10-31] MEDS: CARVEDILOL 12.5 MG TABLET PO SCH ×3 (11:30→17:37)
[2020-10-31] MEDS ORDERED: DEXTROSE 50% 25 GM / 50ML DISP.SYRIN. IV PRN (11:45)
[2020-10-31] MEDS: INSULIN LISPRO 300 UNITS/3 ML VIAL. SQ SCH ×2 (12:00→17:00)
[2020-10-31] MEDS: RANOLAZINE 500 MG TAB.ER.12H PO SCH ×2 (12:30→17:35)
[2020-10-31 15:00] VITALS: BP 127/73
[2020-10-31] MEDS ORDERED: VITAMIN E. 400 UNIT CAPSULE. PO SCH (17:00)
[2020-10-31] MEDS ORDERED: OMEGA-3 FATTY ACIDS/FISH OIL 1,000 MG CAPSULE. PO SCH (17:00)
[2020-10-31] MEDS ORDERED: amLODIPine BESYLATE 5 MG TABLET PO SCH (17:00)
[2020-10-31] MEDS ORDERED: ASPIRIN ENTERIC COATED 81 MG TABLET.DR. PO SCH (17:00)
[2020-10-31] MEDS ORDERED: EMPAGLIFLOZIN 25 MG TABLET. PO SCH (17:00)
[2020-10-31] MEDS ORDERED: ZINC 50 MG PO SCH (17:00)
[2020-10-31] MEDS ORDERED: TAMSULOSIN 0.4 MG CAP.ER.24H. PO SCH (17:00)
[2020-10-31] MEDS ORDERED: MULTIVITAMIN with MINERAL TABLET. PO SCH (17:00)
[2020-10-31] MEDS ORDERED: VITAMIN B COMPLEX CAPSULE. PO SCH (17:00)
[2020-10-31 19:00] VITALS: BP 121/65
[2020-10-31] MEDS ORDERED: MELATONIN 3 MG TABLET PO SCH (21:00)
[2020-11-01] VITALS: BP 115/62
[2020-11-01 07:00] VITALS: BP 122/50
[2020-11-01] MEDS: IPRATRPIUM/ALBUTEROL 0.5/2.5MG 3 ML NEBU. INH SCH ×2 (08:00→12:00)
[2020-11-01] MEDS: INSULIN LISPRO 300 UNITS/3 ML VIAL. SQ SCH ×2 (08:00→12:48)
[2020-11-01] MEDS: methylPREDNISolone SOD SUCC PF 40 MG/ML VIAL. IV SCH (09:58)
[2020-11-01] MEDS: AZITHROMYCIN 250 MG TABLET. PO SCH (09:58)
[2020-11-01 11:00] VITALS: BP 138/79
[2020-11-01] MEDS: RANOLAZINE 500 MG TAB.ER.12H PO SCH (12:00)
[2020-11-01] MEDS ORDERED: IOHEXOL 350 MG/ML 100 ML VIAL. IV ONE (12:00)
[2020-11-01] MEDS: CARVEDILOL 12.5 MG TABLET PO SCH (12:00)
--- NOTE | 2020-11-01 12:58 | RAD ---
PQRS Compliance Statement: One or more of the following individualized dose reduction techniques were utilized for this examinat ion: 1. Automated exposure control 2. Adjustment of the mA and/or kV according to patient size 3. Use of iterative reconstruction technique Exam performed: CT pulmonary angiogram of the chest with contrast. Date: 11/01/2020. Comparison:None available Indication: Syncope, elevated d-dimer Technique: Contiguous helical acquisitions are obtained through the chest during intravenous administ ration of [ 75 ] cc of [ Isovue-370 ] . [Sagittal and coronal] MIP images were obtained and rev iewed Findings: Diagnostic quality: Adequate. Pulmonary emboli: None seen Right heart strain: None Pulmonary arteries: Normal in caliber Heart/Systemic Vasculature: Aorta is normal in caliber with mild atheromatous calcification. The hear t size is within limits of normal. Diffuse atheromatous coronary calcification with coronary artery s tent. There is bipolar pacemaker Mediastinum: No mediastinal or hilar adenopathy is seen. Lungs: Linear left basilar opacity likely atelectasis, otherwise the lungs are clear. Neck/Axilla/Body Wall: Left thyroid nodule. No neck or axillary adenopathy is seen. Upper Abdomen: Grossly unremarkable Bones: Normal Miscellaneous: There Impression: 1. Linear left basilar opacity likely atelectasis, otherwise unremarkable exam. 2. No convincing evidence of pulmonary embolism seen Electronically signed by: Manisha Zepeda MD (11/01/2020 12:55 PM) [facility]DRA
[2020-11-01] MEDS ORDERED: METH4TAB2 PO (14:07)
[2020-11-01 14:25] VITALS: BP 123/76
[2020-11-01] MEDS ORDERED: ZINC SULFATE 220 MG CAPSULE. PO SCH (17:00)
== END 2020-11-01 15:00 | disposition home or self-care (01) ==
LOC: ER 09:48 → INTOOBSV 11:36 → ICU 11:36
PROVIDERS: ADMIT Family Medicine; ATTEND Family Medicine
DX: I25.10 Atherosclerotic heart disease of native coronary artery without angina pectoris (principal); Z20.822 Contact with and (suspected) exposure to COVID-19; I11.0 Hypertensive heart disease with heart failure; I50.33 Acute on chronic diastolic (congestive) heart failure; E11.65 Type 2 diabetes mellitus with hyperglycemia; E78.00 Pure hypercholesterolemia, unspecified; E66.9 Obesity, unspecified; G47.30 Sleep apnea, unspecified; M19.90 Unspecified osteoarthritis, unspecified site; M25.50 Pain in unspecified joint; F17.210 Nicotine dependence, cigarettes, uncomplicated; Z95.5 Presence of coronary angioplasty implant and graft; Z95.1 Presence of aortocoronary bypass graft; Z79.82 Long term (current) use of aspirin; Z79.02 Long term (current) use of antithrombotics/antiplatelets; Z90.49 Acquired absence of other specified parts of digestive tract; Z68.35 Body mass index [BMI] 35.0-35.9, adult
CPT/HCPCS: 36415; 71045; 71275; 80053; 81001; 82550; 82947; 83036; 83880; 84484; 85025; 85379; 86140; 87804; 93005; 96374; 96375; 96376; 99285; 99406; G0378; J1815; J2405; J2920; J7040; Q9967; U0003; 96361; G0379